=== PATIENT | male | born 2000 | race Caucasian/White ===

== ENCOUNTER 2020-11-07 00:45 | Emergency (ER) | payer OTHER, SELFPAY ==
[2020-11-07 00:46] VITALS: BP 174/98; PULSE 93; RESP 16; TEMP 36.9; O2SAT 97; BMI 25.9
--- NOTE | 2020-11-07 01:03 | CT_ITS ---
STUDY: CT ABDOMEN AND PELVIS WITH CONTRAST REASON FOR EXAM: Male, 20 years old. abdominal pain -- IV PO Contrast RADIATION DOSAGE (If Supplied By Facility): CTDIvol = ( 13.18 ) mGy, DLP = ( 734.98 ) mGycm TECHNIQUE: Transaxial images were obtained from the dome of the diaphragm to the symphysis pubis without oral contrast. Oral and amp; IV Gastrografin and amp; 100mL Isovue-300 was administered. Sagittal and coronal images were reconstructed. Individualized dose optimization techniques were used for this CT. COMPARISON: None. FINDINGS: The visualized lung bases are unremarkable. The visualized portions of the heart are within normal limits. Normal liver. Normal gallbladder and extrahepatic biliary system. Normal spleen. Normal pancreas. Normal bilateral adrenal glands. Normal right kidney. Normal left kidney. Normal visualized stomach. Normal small intestine. There is diffuse thickening of the wall throughout the colon with surrounding stranding including the rectosigmoid from the level of the cecum consistent with diffuse colitis. The appendix is visualized and appears normal. Normal abdominal aorta. Normal inferior vena cava. Normal retroperitoneum. Normal urinary bladder. Normal abdominal wall. Normal osseous structures. CT/Abdomen/Pelvis WITH Contrast IMPRESSION: Diffuse colitis. No acute appendicitis or bowel obstruction. Contracted gallbladder otherwise unremarkable abdominal viscera. Electronically Signed: Myriam Nair MD at 3:14 EDT , Service support ,
[2020-11-07 01:13] LABS: Absolute Neutrophil Count 5.7 X10^3/uL (2.0-7.7); Basophil# 0.05 X10^3/uL; Basophil% 0.6 % (0-1); Eosinophil# 0.14 X10^3/uL; Eosinophils% 1.7 % (0-5); Hematocrit 48.5 % (40-54); Hemoglobin 17.1 g/dL (13.0-16.5); Lymphocyte % 15.6 % (19-41); Mean Corp Hgb Conc 35.3 g/dL (32-36); Mean Corpuscular Hgb 32.3 pg (27.0-32.0); Mean Corpuscular Volume 91.7 fL (80-94); Mean Platelet Vol. 9.7 fl (6.2-12.0); Monocyte% 13.2 % (0-10); NRBC Flagged by Analyzer 0 % (0-5); Neutrophil # 5.74 X10^3/uL (2.7-7.7); Neutrophil % 68.8 % (47-70); Platelet Count 125 K/mm3 (150-450); RBC Distribution Width CV 11.8 % (11.6-14.6); Red Blood Count 5.29 M/mm3 (4.6-6.2); White Blood Count 8.3 K/mm3 (4.4-11.0)
[2020-11-07] MEDS: 0.9% Normal Saline 1,000 ML 1000 ML IV (01:19)
[2020-11-07 01:24] LABS: AST(SGOT) 14 U/L (15-37); Alanine Aminotransfer ALT/SGPT 21 U/L (16-61); Albumin, Serum 3.7 g/dL (3.2-5.0); Alkaline Phosphatase 79 U/L (45-117); Anion Gap 7 (5-15); BUN 15 mg/dL (7-18); BUN/Creat Ratio 13.8 RATIO (10-20); Calcium,Total 8.8 mg/dL (8.5-10.1); Chloride 102 mmol/L (98-107); Creatinine, Serum 1.09 mg/dL (0.70-1.30); EST Glomerular Filtration Rate 91 mL/min (>60); Est Glom Filt Rate - Afr Amer 110 mL/min (>60); Estimated Creatinine Clearance 114.18 ml/min; Globulin 3.8 g/dL (2.2-4.2); Glucose 122 mg/dL (74-106); Lipase 69 U/L (73-393); Potassium 3.9 mmol/L (3.5-5.1); Protein, Total 7.5 g/dL (6.4-8.2); Sodium Level 136 mmol/L (136-145)
--- NOTE | 2020-11-07 01:34 | EDS_ITS ---
HPI HPI - GI History of Present Illness Chief Complaint: Abd Pain Informant: patient and spouse/S.O. Narrative Narrative: 20-year-old male presents to the emergency department with abdominal pain and diarrhea. States symptoms began last evening rather abruptly. States the diarrhea tonight has had some bright red blood with it. He denies any fever. He denies any prior occurrence of this. He describes the pain is generalized over the lower abdomen. No familial history of Crohn's or ulcerative colitis. He denies any concerns of contaminated food or water. No one else sick at home. PFSH PFSH no medical history Home Medications ciprofloxacin HCl 500 mg PO BID #20 tablet 11/07/20 [Rx Last Taken Unknown] metronidazole 500 mg PO Q8H #30 tab 11/07/20 [Rx Last Taken Unknown] Allergy/AdvReac Type Severity Reaction Status Date / Time No Known Allergies Allergy Verified 11/07/20 00:50 Surgical History (Updated 11/07/20 @ 01:[address] Christiano Lerma DO) History of elbow surgery Social History (Updated 11/07/20 @ 01:[address] Christiano Lerma DO) Smoking Status: Former smoker substance use type: does not use ROS ROS ED Constitutional Constitutional ED: Denies chills or weight loss Eyes Eyes: Denies change in vision or diplopia ENT ENT ED: Denies ear pain, rhinorrhea or sore throat Cardiovascular Cardiovascular: Denies chest pain, orthopnea, palpitations or racing heartbeat Respiratory/Chest Respiratory/Chest: Denies cough, dyspnea or orthopnea Gastrointestinal Gastrointestinal: Reports abdominal pain, diarrhea and hematochezia; Denies nausea or vomiting Genitourinary Genitourinary ED: Denies dysuria, hematuria or urinary frequency Musculoskeletal Musculoskeletal: Denies arthralgias or myalgias Integumentary Denies abscess or rash Neurologic Neurologic: Denies headache(s) or weakness Psychiatric Psychiatric: Denies anxiety, depression, suicidal ideation or suicidal thoughts Endocrine Endocrinology: Denies polydipsia, polyphagia or polyuria Allergic/Immunologic Allergic/Immunologic ED: Denies mouth swelling, tongue swelling or urticaria EXAM Physical Exam Const Vital Signs: 11/07/20 00:46 11/07/20 03:02 Temperature 98.4 F Temperature Source Oral Pulse Rate 93 Respiratory Rate 16 16 Blood Pressure 174/98 H Blood Pressure Mean 123 Pulse Ox 97 Oxygen Delivery Method Room Air Positive well nourished and well developed General Appearance ED: well developed HEENT Reports normocephalic, head/scalp atraumatic and moist mucous membranes Eyes PERRL and EOMs intact bilaterally Neck no lymphadenopathy, supple and no JVD Resp normal respiratory effort and clear to auscultation bilaterally Cardio regular rate, regular rhythm and no murmurs GI GI Narrative: Minimally tender to palpation over the lower abdominal quadrants. No guarding or rebound. Normal bowel sounds. Palpation: soft Back/Spine no CVA tenderness and normal ROM Extremity normal to inspection General Extremety ED: Negative for edema General Extremity: Negative for edema Neuro oriented x3 and CN's II-XII intact bilaterally Sensorium / Orientation: alert Motor Exam: strength 5/5 throughout Psych mental status grossly normal Mood & Affect: Negative for depressed or tearful Skin no rashes or lesions noted and no wounds MDM MDM MDM Narrative Medical decision making narrative: Patient's basic blood work is normal. CT is consistent with a diffuse colitis. Patient has declined pain or nausea medications. Will write for him to have Cipro and Flagyl. He was urged to follow-up with primary care to help arrange for follow-up colonoscopy. Patient notes understanding of this. They note that at this time were unable to differentiate the type of colitis exactly. Thus the importance of follow-up Lab Data Attestation: I reviewed the patient's lab results. Labs: Laboratory Results - last 24 hr 11/07/20 11/07/20 00:56 00:56 WBC 8.3 RBC 5.29 Hgb 17.1 H Hct 48.5 MCV 91.7 MCH 32.3 H MCHC 35.3 RDW Std Deviation 40.0 RDW Coeff of Pravin 11.8 Plt Count 125 L MPV 9.7 Immature Gran % (Auto) 0.100 Neut % (Auto) 68.8 Lymph % (Auto) 15.6 L [place] % (Auto) 13.2 H Eos % (Auto) 1.7 Baso % (Auto) 0.6 Absolute Neuts (auto) 5.7 Absolute Lymphs (auto) 1.30 Nucleated RBC % 0 Sodium 136 Potassium 3.9 Chloride 102 Carbon Dioxide 27.0 Anion Gap 7 BUN 15 Creatinine 1.09 Estim Creat Clear Calc 114.18 Est GFR (MDRD) Af Amer 110 Est GFR (MDRD) Non-Af 91 BUN/Creatinine Ratio 13.8 Glucose 122 H Calcium 8.8 Total Bilirubin 0.70 AST 14 L ALT 21 Alkaline Phosphatase 79 Total Protein 7.5 Albumin 3.7 Globulin 3.8 Albumin/Globulin Ratio 1.0 Lipase 69 L Radiography Diagnostic Testing: Radiology Impression Abdomen/Pelvis CT 11/07/20 01:03 IMPRESSION: Diffuse colitis. No acute appendicitis or bowel obstruction. Contracted gallbladder otherwise unremarkable abdominal viscera. Electronically Signed: Myriam Nair MD at 3:14 EDT , Service support , Discharge Plan Triage Chief Complaint: Abd Pain ED Provider: Christiano Lerma Dx/Rx/DC Orders Clinical Impression: Acute colitis, Hematochezia, Abdominal pain, acute Prescriptions: New metronidazole [metronidazole] 500 MG tablet 500 mg PO Q8H Qty: 30 RF: 0 ciprofloxacin HCl [ciprofloxacin HCl] 500 MG tablet 500 mg PO BID Qty: 20 RF: 0 Primary Care Provider: Jose Sorto Referrals: Jose Sorto [Primary Care Provider] - 1 Week (Please discuss your need for colonoscopy if your stool cultures are negative.)
[2020-11-07 03:02] VITALS: RESP 16
[2020-11-07] MEDS: 0.9% Normal Saline 1,000 ML 250 ML IV (03:13)
[2020-11-07 03:33] VITALS: BP 132/80; PULSE 74; RESP 16; O2SAT 98
[2020-11-07] MEDS: metroNIDAZOLE 500 MG Tablet PO (03:37)
[2020-11-07] MEDS: Ciprofloxacin 500 MG Tablet PO (03:37)
--- NOTE | 2020-11-07 07:21 | ED.RN ---
THIS NURSE CONTACTED THE PT ABOUT THE RESULTS OF HIS STOOL SAMPLE. PT ENCOURAGED TO CONTINUE TAKING CIPRO AND FLAGYL AND FOLLOWUP WITH HIS PCP. DOES NOT NECESSARILY NEED A COLONOSCOPY AT THIS TIME
== END 2020-11-07 03:42 | disposition home or self-care (01) ==
LOC: ED 01:44
PROVIDERS: Emergency Provider Emergency Medicine; PCP Family Medicine
DX: K52.9 Noninfective gastroenteritis and colitis, unspecified (principal); Z87.891 Personal history of nicotine dependence
CPT/HCPCS: 74177; 80053; 83630; 83690; 85025; 87177; 87209; 87493; 87506; 96360; 96361; 99284; J7030; Q9967; A4216